=== PATIENT | female | born 1985 | race Caucasian/White ===

== ENCOUNTER 2019-11-29 10:10 | Day surgery (SDC) | payer BC ==
[~2019-11-29] VITALS: Ht 167.6 cm; Wt 62.8 kg
[~2019-11-29 10:10] MED LIST: IBUP-1222 PO; None at this Time; OXYC-302 PO; PREN1TAB27 PO
[2019-11-29 10:49] VITALS: BP 106/68
[2019-11-29] MEDS ORDERED: LACTATED RINGERS 1,000 ML IV SCH (10:54)
[2019-11-29 10:59] LABS: HCG UR SG 1.005 (1.003-1.030)
[2019-11-29] MEDS ORDERED: CHLORHEXIDINE 15 ML UDC MM ONE (11:00)
[2019-11-29] MEDS ORDERED: DIAZEPAM 5 MG TABLET PO ONE (11:00)
[2019-11-29] MEDS ORDERED: ONDANSETRON ODT 8 MG PO ONE (11:00)
[2019-11-29] MEDS ORDERED: ACETAMINOPHEN 500 MG TABLET PO ONE (11:00)
[2019-11-29] MEDS ORDERED: BUPIVACAINE/PF-EPI 0.25% 1:200K ONE (11:14)
[2019-11-29] MEDS ORDERED: MIDAZOLAM 1 MG/ML, 2ML ONE (11:23)
[2019-11-29] MEDS ORDERED: PROPOFOL 50 ML ONE (11:23)
[2019-11-29] MEDS ORDERED: FENTANYL PF 250 MCG/5ML ONE (11:24)
[2019-11-29] MEDS ORDERED: KETOROLAC 30 MG/1 ML ONE ×2 (11:31→12:27)
[2019-11-29] MEDS ORDERED: ONDANSETRON 2MG/ML, 2ML ONE (11:31)
[2019-11-29] MEDS ORDERED: DEXAMETHASONE 4 MG/ML, 1ML ONE (11:31)
[2019-11-29 11:33] LABS: BASOPHILS # (AUTO) 0.04 x10^3/uL (0-0.1); BASOPHILS % (AUTO) 1 % (0-1); EOSINOPHILS # (AUTO) 0.02 x10^3/uL (0-0.4); EOSINOPHILS % (AUTO) 0 % (1-7); LYMPHOCYTES # (AUTO) 1.83 x10^3/uL (1-3.4); LYMPHOCYTES % (AUTO) 36 % (22-44); MD NO; MEAN CORPUSCULAR HEMOGLOBIN 31.9 pg (27.0-34.8); MEAN CORPUSCULAR HGB CONC 33.5 g/dL (32.4-35.8); MEAN CORPUSCULAR VOLUME 95.3 fL (80-100); MEAN PLATELET VOLUME 7.4 fL (7.4-10.4); MONOCYTES # (AUTO) 0.52 x10^3/uL (0.2-0.8); MONOCYTES % (AUTO) 10 % (2-9); NEUTROPHILS # (AUTO) 2.74 x10^3/uL (1.8-6.8); NEUTROPHILS % (AUTO) 53 % (42-75); PLATELET COUNT 304 x10^3/uL (130-400); RED BLOOD COUNT 4.47 x10^6/uL (3.82-5.3); RED CELL DISTRIBUTION WIDTH 12.8 % (9.6-15.2)
[2019-11-29] MEDS ORDERED: PROMETHAZINE 25 MG/ML, 1ML IVPush PRN ×2 (12:00→13:00)
[2019-11-29] MEDS ORDERED: MEPERIDINE/PF 25MG/0.5ML IVPush PRN ×2 (12:00→13:00)
[2019-11-29] MEDS ORDERED: MIDAZOLAM 1 MG/ML, 2ML IV PRN (12:00)
[2019-11-29] MEDS ORDERED: OXYcodone 5 MG/5 ML ORAL.SOL UDC PO PRN ×2 (12:00→13:00)
[2019-11-29] MEDS ORDERED: DIPHENHYDRAMINE 50 MG/ML, 1ML IVPush PRN (12:00)
[2019-11-29] MEDS ORDERED: DIAZEPAM 5 MG/ML, 2ML IVPush PRN (12:00)
[2019-11-29] MEDS ORDERED: HYDROmorphone 1 MG/ML, 1ML INJ IVPush PRN ×2 (12:00→13:00)
[2019-11-29] MEDS ORDERED: ONDANSETRON 2MG/ML, 2ML IVPush PRN ×2 (12:00→13:00)
[2019-11-29] MEDS ORDERED: EPHEDRINE 50 MG/ML, 1ML IM PRN (12:00)
[2019-11-29] MEDS ORDERED: OXYcodone 5 MG/5 ML ORAL.SOL UDC ONE (12:28)
[2019-11-29] MEDS ORDERED: FENTANYL PF 100 MCG/2ML ONE (12:28)
[2019-11-29] MEDS: FENTANYL PF 100 MCG/2ML IV PRN ×2 (12:36→12:59)
[2019-11-29] MEDS ORDERED: KETOROLAC 30 MG/1 ML IVPush PRN (13:00)
[2019-11-29] MEDS ORDERED: FENTANYL PF 100 MCG/2ML IV PRN (13:00)
[2019-11-29] MEDS ORDERED: MEPERIDINE/PF 25MG/ML,1ML ONE (13:21)
== END 2019-11-29 16:05 | disposition home or self-care (01) ==
LOC: OUT 10:10
PROVIDERS: ATTEND Obstetrics & Gynecology Gynecology
DX: N93.8 Other specified abnormal uterine and vaginal bleeding (principal); Z11.59 Encounter for screening for other viral diseases; N94.6 Dysmenorrhea, unspecified; N84.0 Polyp of corpus uteri; N71.9 Inflammatory disease of uterus, unspecified; Z90.49 Acquired absence of other specified parts of digestive tract; Z98.890 Other specified postprocedural states; Z79.899 Other long term (current) drug therapy
CPT/HCPCS: 36415; 58558; 81025; 85025; 88305; J1100; J1885; J2175; J2250; J2405; J2704; J3010; J7120; Q0162; U0001

== ENCOUNTER 2020-08-28 08:08 | Day surgery (SDC) | payer BC ==
[2020-08-27 13:04] LABS: ALANINE AMINOTRANSFERASE 31 U/L (12-78); ALBUMIN 4.1 g/dL (3.4-5.0); ANION GAP 6 mmol/L (5-15); CALCIUM 8.4 mg/dL (8.5-10.1); CHLORIDE 109 mmol/L (98-107); CREATININE 1.02 mg/dL (0.55-1.02)
[2020-08-27 13:05] LABS: BASOPHILS % (AUTO) 1 % (0-1); EOSINOPHILS % (AUTO) 1 % (1-7); LYMPHOCYTES % (AUTO) 36 % (22-44); MEAN CORPUSCULAR HEMOGLOBIN 31.6 pg (27.0-34.8); MEAN CORPUSCULAR HGB CONC 33.5 g/dL (32.4-35.8); MEAN PLATELET VOLUME 7.6 fL (7.4-10.4); MONOCYTES % (AUTO) 9 % (2-9); NEUTROPHILS % (AUTO) 52 % (42-75); PLATELET COUNT 318 x10^3/uL (130-400); RED BLOOD COUNT 4.23 x10^6/uL (3.82-5.3); RED CELL DISTRIBUTION WIDTH 12.9 % (9.6-15.2)
[2020-08-27 13:09] LABS: ALKALINE PHOSPHATASE 33 U/L (45-117); BILIRUBIN,TOTAL 0.6 mg/dL (0.2-1.0)
[2020-08-27 13:10] LABS: MD NO
[2020-08-27 13:28] LABS: MICROSCOPIC AUTO
[~2020-08-28] VITALS: Ht 167.6 cm; Wt 61.3 kg
[~2020-08-28 08:08] MED LIST changes: +ACETAMINOPHEN 325 MG TABLET PO PRN; +EPHEDRINE 50 MG/ML, 1ML IVPush PRN; +FISH1CAP PO; +LABETALOL 5MG/ML, 20ML IV PRN; +LORazepam 2 MG/ML, 1ML IVPush PRN; +MAGN500C9 PO; +MEPERIDINE/PF 25MG/0.5ML IVPush PRN; +METHOCARBAMOL 1,000 MG in DEXTROSE 5% 100 ML IV PRN; +MULT-449 PO; +ONDANSETRON 2MG/ML, 2ML IVPush PRN; -OXYC-302 PO; +OXYC1TAB14 PO; +OXYcodone 5 MG/5 ML ORAL.SOL UDC PO PRN; +PROMETHAZINE 25 MG/ML, 1ML IVPush PRN; +hydrALAzine 20 MG/ML, 1ML IV PRN
[2020-08-28 08:46] VITALS: BP 113/76
[2020-08-28] MEDS ORDERED: CHLORHEXIDINE 15 ML UDC ONE (08:49)
[2020-08-28] MEDS ORDERED: LACTATED RINGERS 1,000 ML IV SCH (09:00)
[2020-08-28] MEDS ORDERED: CHLORHEXIDINE 15 ML UDC MM ONE (09:00)
[2020-08-28] MEDS ORDERED: MANNITOL PMX 20% 500 ML ONE (09:19)
[2020-08-28] MEDS ORDERED: BUPIVACAINE/PF 0.25% ONE (09:19)
[2020-08-28] MEDS ORDERED: SCOPOLAMINE 1MG PATCH TD SCH (09:30)
[2020-08-28] MEDS ORDERED: ACETAMINOPHEN 500 MG TABLET PO ONE (09:30)
[2020-08-28] MEDS ORDERED: SCOPOLAMINE 1MG PATCH TD ONE (09:35)
[2020-08-28] MEDS ORDERED: ACETAMINOPHEN 500 MG TABLET ONE (09:35)
[2020-08-28] MEDS ORDERED: KETOROLAC 30 MG/1 ML ONE ×2 (09:42→17:46)
[2020-08-28] MEDS ORDERED: METOCLOPRAMIDE 5 MG/ML, 2ML ONE (09:42)
[2020-08-28] MEDS ORDERED: FENTANYL PF 250 MCG/5ML ONE ×2 (10:01→11:22)
[2020-08-28] MEDS ORDERED: MIDAZOLAM 1 MG/ML, 2ML ONE (10:01)
[2020-08-28] MEDS ORDERED: ONDANSETRON 2MG/ML, 2ML ONE (10:02)
[2020-08-28] MEDS ORDERED: PROPOFOL 10 MG/ML, 20ML ONE (10:02)
[2020-08-28] MEDS ORDERED: GLYCOPYRROLATE 0.2MG/1ML, 5ML ONE (10:02)
[2020-08-28] MEDS ORDERED: NEOSTIGMINE 1 MG/ML, 10ML ONE (10:02)
[2020-08-28] MEDS ORDERED: CEFAZOLIN 1,000 MG ONE (10:02)
[2020-08-28] MEDS ORDERED: SUCCINYLCHOLINE 20 MG/ML, 10ML ONE (10:02)
[2020-08-28] MEDS ORDERED: DEXAMETHASONE 4 MG/ML, 1ML ONE (10:02)
[2020-08-28] MEDS ORDERED: ROCURONIUM 10MG/ML,5ML ONE (10:02)
[2020-08-28] MEDS ORDERED: PROPOFOL 50 ML ONE (10:03)
[2020-08-28] MEDS ORDERED: FENTANYL PF 100 MCG/2ML ONE ×2 (11:54→12:27)
[2020-08-28] MEDS ORDERED: OXYcodone 5 MG/5 ML ORAL.SOL UDC ONE (11:54)
[2020-08-28] MEDS: FENTANYL PF 100 MCG/2ML IV PRN ×3 (11:56→12:28)
[2020-08-28] MEDS ORDERED: HYDROmorphone 1 MG/ML, 1ML INJ ONE (12:02)
[2020-08-28] MEDS: HYDROmorphone 1 MG/ML, 1ML INJ IVPush PRN ×2 (12:07→12:18)
[2020-08-28] MEDS ORDERED: KETOROLAC 30 MG/1 ML IVPush PRN (18:00)
== END 2020-08-28 20:30 | disposition home or self-care (01) ==
LOC: OUT 08:08
PROVIDERS: ATTEND Obstetrics & Gynecology Gynecology
DX: N93.9 Abnormal uterine and vaginal bleeding, unspecified (principal); N94.6 Dysmenorrhea, unspecified; N80.0 Endometriosis of uterus; N70.11 Chronic salpingitis; N83.8 Other noninflammatory disorders of ovary, fallopian tube and broad ligament; Z20.822 Contact with and (suspected) exposure to COVID-19; Z79.899 Other long term (current) drug therapy; Z90.49 Acquired absence of other specified parts of digestive tract; Z98.890 Other specified postprocedural states
CPT/HCPCS: 36415; 58571; 80053; 81001; 84702; 85025; 86850; 86900; 88307; J0330; J0690; J1100; J1170; J1885; J2250; J2405; J2704; J2710; J2765; J3010; S2900; U0003

== ENCOUNTER 2020-10-21 20:48 | Inpatient (IN) | payer BC ==
[~2020-10-21] VITALS: Ht 167.6 cm; Wt 70.6 kg
[~2020-10-21 20:48] MED LIST changes: -ACETAMINOPHEN 325 MG TABLET PO PRN; -EPHEDRINE 50 MG/ML, 1ML IVPush PRN; -LABETALOL 5MG/ML, 20ML IV PRN; -LORazepam 2 MG/ML, 1ML IVPush PRN; -MEPERIDINE/PF 25MG/0.5ML IVPush PRN; -METHOCARBAMOL 1,000 MG in DEXTROSE 5% 100 ML IV PRN; -ONDANSETRON 2MG/ML, 2ML IVPush PRN; -OXYcodone 5 MG/5 ML ORAL.SOL UDC PO PRN; -PROMETHAZINE 25 MG/ML, 1ML IVPush PRN; -hydrALAzine 20 MG/ML, 1ML IV PRN
[2020-10-21] MEDS ORDERED: ONDANSETRON 2MG/ML, 2ML IVPush ONE (21:30)
[2020-10-21] MEDS ORDERED: SODIUM CHLORIDE 0.9% 1,000ML IVBOLUS ONE ×2 (21:30→23:30)
[2020-10-21] MEDS ORDERED: MORPHINE SULFATE 4 MG/ML, 1ML IVPush PRN (21:30)
[2020-10-21] MEDS ORDERED: PIPERACILLIN/TAZO 3.375 GM in DEXTROSE 5% 50 ML IVPB ONE (21:30)
[2020-10-21] MEDS ORDERED: SODIUM CHLORIDE FLUSH 10ML SYR IVF ONE (21:30)
[2020-10-21] MEDS ORDERED: PIPERACILLIN/TAZO/PMX 3.375GM 50 ML ONE (21:38)
[2020-10-21] MEDS ORDERED: MORPHINE SULFATE 4 MG/ML, 1ML ONE (21:39)
[2020-10-21] MEDS ORDERED: ONDANSETRON 2MG/ML, 2ML ONE (21:39)
[2020-10-21 21:43] LABS: BASOPHILS % (AUTO) 1 % (0-1); EOSINOPHILS % (AUTO) 0 % (1-7); LYMPHOCYTES % (AUTO) 6 % (22-44); MEAN CORPUSCULAR HEMOGLOBIN 31.2 pg (27.0-34.8); MEAN CORPUSCULAR HGB CONC 33.2 g/dL (32.4-35.8); MEAN PLATELET VOLUME 7.6 fL (7.4-10.4); MONOCYTES % (AUTO) 7 % (2-9); NEUTROPHILS % (AUTO) 87 % (42-75); PLATELET COUNT 224 x10^3/uL (130-400); RED BLOOD COUNT 3.74 x10^6/uL (3.82-5.3); RED CELL DISTRIBUTION WIDTH 13.1 % (9.6-15.2)
[2020-10-21 21:44] LABS: MD NO
--- NOTE | 2020-10-21 21:45 | NUR ---
IV STARTED, LABS DRAWN, 1 SET BC DRAWN BY RN, 2ND SET DRAWN BY LAB.
[2020-10-21] MEDS ORDERED: HYDROmorphone 1 MG/ML, 1ML INJ ONE ×2 (21:46→23:41)
[2020-10-21 21:57] LABS: ALBUMIN 3.4 g/dL (3.4-5.0); ANION GAP 4 mmol/L (5-15); CALCIUM 8.3 mg/dL (8.5-10.1); CHLORIDE 105 mmol/L (98-107)
[2020-10-21 22:00] LABS: ALANINE AMINOTRANSFERASE 26 U/L (12-78); ALKALINE PHOSPHATASE 36 U/L (45-117); BILIRUBIN,TOTAL 0.2 mg/dL (0.2-1.0); CREATININE 1.19 mg/dL (0.55-1.02); TOTAL PROTEIN 7.2 g/dL (6.4-8.2)
[2020-10-21] MEDS ORDERED: HYDROmorphone 1 MG/ML, 1ML INJ IV ONE ×2 (22:00)
[2020-10-21] MEDS ORDERED: OXYC1TAB14 PO (22:29)
[2020-10-21] MEDS ORDERED: CEPH-376 PO (22:29)
[2020-10-21] MEDS ORDERED: METR-90 PO (22:29)
[2020-10-21] MEDS ORDERED: ONDA4TAB7 PO (22:29)
[2020-10-21 22:30] LABS: MICROSCOPIC AUTO
--- NOTE | 2020-10-21 22:30 | NUR ---
PT TO CT WITH TECH AT THIS TIME.
[2020-10-21] MEDS ORDERED: OMNIPAQUE 350 MG/ML, 100ML BOTTLE ONE (22:45)
[2020-10-21] MEDS ORDERED: morphine SULFATE 10 MG/ML, 1ML IVPush PRN (23:30)
[2020-10-21] MEDS ORDERED: ACETAMINOPHEN 325 MG TABLET PO PRN (23:30)
[2020-10-21] MEDS ORDERED: IBUPROFEN 600 MG TABLET PO PRN (23:30)
[2020-10-22 00:35] VITALS: BP 93/60
[2020-10-22] MEDS: SODIUM CHLORIDE 0.9% 1,000 ML IV SCH ×3 (00:40→19:49)
[2020-10-22] MEDS: PROMETHAZINE 25 MG/ML, 1ML IM PRN ×2 (01:08→05:46)
[2020-10-22] MEDS: ONDANSETRON 2MG/ML, 2ML IVPush PRN ×4 (04:17→22:30)
[2020-10-22] MEDS: OXYcodone IR 5MG TABLET PO PRN ×3 (05:46→15:27)
[2020-10-22] MEDS: PIPERACILLIN/TAZO 3.375 GM in DEXTROSE 5% 50 ML IVPB SCH ×3 (05:46→22:19)
[2020-10-22 05:57] LABS: BASOPHILS % (AUTO) 0 % (0-1); EOSINOPHILS % (AUTO) 0 % (1-7); LYMPHOCYTES % (AUTO) 12 % (22-44); MEAN CORPUSCULAR HEMOGLOBIN 31.4 pg (27.0-34.8); MEAN CORPUSCULAR HGB CONC 33.5 g/dL (32.4-35.8); MEAN PLATELET VOLUME 7.6 fL (7.4-10.4); MONOCYTES % (AUTO) 7 % (2-9); NEUTROPHILS % (AUTO) 82 % (42-75); PLATELET COUNT 180 x10^3/uL (130-400); RED BLOOD COUNT 3.38 x10^6/uL (3.82-5.3); RED CELL DISTRIBUTION WIDTH 12.9 % (9.6-15.2)
[2020-10-22 05:59] LABS: MD NO
[2020-10-22 06:23] LABS: CHLORIDE 108 mmol/L (98-107)
[2020-10-22 06:30] LABS: ALANINE AMINOTRANSFERASE 23 U/L (12-78); ALBUMIN 2.8 g/dL (3.4-5.0); ALKALINE PHOSPHATASE 31 U/L (45-117); ANION GAP 5 mmol/L (5-15); BILIRUBIN,TOTAL 0.1 mg/dL (0.2-1.0); CALCIUM 7.5 mg/dL (8.5-10.1); CREATININE 1.04 mg/dL (0.55-1.02); TOTAL PROTEIN 6.2 g/dL (6.4-8.2)
[2020-10-22 07:02] VITALS: BP 108/63
[2020-10-22] MEDS: FAMOTIDINE 20 MG TABLET PO SCH ×2 (07:41→19:49)
[2020-10-22 12:26] VITALS: BP 90/55
[2020-10-22] MEDS: HYDROcodone/APAP 5/325 TABLET PO PRN ×2 (16:43→21:20)
[2020-10-22 18:47] VITALS: BP 88/50
[2020-10-22 19:16] VITALS: BP 104/58
[2020-10-23 00:20] VITALS: BP 99/63
[2020-10-23] MEDS: HYDROcodone/APAP 5/325 TABLET PO PRN ×5 (02:38→21:39)
[2020-10-23] MEDS: PROMETHAZINE 25 MG/ML, 1ML IM PRN (03:03)
[2020-10-23] MEDS: SODIUM CHLORIDE 0.9% 1,000 ML IV SCH ×2 (05:55→16:42)
[2020-10-23] MEDS: PIPERACILLIN/TAZO 3.375 GM in DEXTROSE 5% 50 ML IVPB SCH ×3 (05:56→21:39)
[2020-10-23 06:18] VITALS: BP 115/66
[2020-10-23] MEDS: ONDANSETRON 2MG/ML, 2ML IVPush PRN ×4 (06:19→19:10)
[2020-10-23] MEDS: FAMOTIDINE 20 MG TABLET PO SCH ×2 (07:32→21:39)
[2020-10-23 13:00] VITALS: BP 99/63
[2020-10-23] MEDS ORDERED: POLYETHYLENE GLYCOL 17 GM PACKET NG ONE (13:30)
[2020-10-23 19:51] VITALS: BP 94/57
[2020-10-23] MEDS: DOCUSATE 100 MG CAPSULE PO SCH (21:39)
[2020-10-24 01:37] VITALS: BP 108/68
[2020-10-24] MEDS: SODIUM CHLORIDE 0.9% 1,000 ML IV SCH ×2 (01:45→13:24)
[2020-10-24] MEDS: ONDANSETRON 2MG/ML, 2ML IVPush PRN ×3 (01:45→20:13)
[2020-10-24] MEDS: HYDROcodone/APAP 5/325 TABLET PO PRN ×5 (01:45→20:13)
[2020-10-24 05:31] LABS: BASOPHILS % (AUTO) 0 % (0-1); EOSINOPHILS % (AUTO) 0 % (1-7); LYMPHOCYTES % (AUTO) 18 % (22-44); MEAN CORPUSCULAR HEMOGLOBIN 31.3 pg (27.0-34.8); MEAN CORPUSCULAR HGB CONC 33.5 g/dL (32.4-35.8); MEAN PLATELET VOLUME 7.3 fL (7.4-10.4); MONOCYTES % (AUTO) 10 % (2-9); NEUTROPHILS % (AUTO) 72 % (42-75); PLATELET COUNT 173 x10^3/uL (130-400); RED BLOOD COUNT 3.19 x10^6/uL (3.82-5.3); RED CELL DISTRIBUTION WIDTH 12.9 % (9.6-15.2)
[2020-10-24 05:36] LABS: MD NO
[2020-10-24 05:41] LABS: ANION GAP 3 mmol/L (5-15); CALCIUM 7.4 mg/dL (8.5-10.1); CHLORIDE 105 mmol/L (98-107)
[2020-10-24 05:43] LABS: CREATININE 0.84 mg/dL (0.55-1.02)
[2020-10-24] MEDS: PIPERACILLIN/TAZO 3.375 GM in DEXTROSE 5% 50 ML IVPB SCH ×3 (05:46→21:43)
[2020-10-24 06:49] VITALS: BP 105/63
[2020-10-24] MEDS ORDERED: POLYETHYLENE GLYCOL 17 GM PACKET PO PRN (07:00)
[2020-10-24] MEDS: DOCUSATE 100 MG CAPSULE PO SCH ×2 (08:03→20:13)
[2020-10-24] MEDS: FAMOTIDINE 20 MG TABLET PO SCH ×2 (08:03→20:13)
[2020-10-24] MEDS ORDERED: BISACODYL 10 MG SUPP PR ONE (11:00)
[2020-10-24 13:00] VITALS: BP 100/63
[2020-10-24 19:56] VITALS: BP 88/56
[2020-10-25] MEDS: HYDROcodone/APAP 5/325 TABLET PO PRN (00:41)
[2020-10-25 01:18] VITALS: BP 97/60
[2020-10-25 05:40] LABS: BASOPHILS % (AUTO) 0 % (0-1); EOSINOPHILS % (AUTO) 0 % (1-7); LYMPHOCYTES % (AUTO) 21 % (22-44); MD NO; MEAN CORPUSCULAR HEMOGLOBIN 30.8 pg (27.0-34.8); MEAN CORPUSCULAR HGB CONC 33.2 g/dL (32.4-35.8); MEAN PLATELET VOLUME 7.4 fL (7.4-10.4); MONOCYTES % (AUTO) 13 % (2-9); NEUTROPHILS % (AUTO) 66 % (42-75); PLATELET COUNT 166 x10^3/uL (130-400); RED BLOOD COUNT 3.32 x10^6/uL (3.82-5.3); RED CELL DISTRIBUTION WIDTH 12.8 % (9.6-15.2)
[2020-10-25 05:49] LABS: INTERNATIONAL NORMALIZED RATIO 1.1 (0.93-1.1); PROTHROMBIN TIME 11.7 Seconds (9.6-11.5)
[2020-10-25 05:54] LABS: CHLORIDE 104 mmol/L (98-107)
[2020-10-25] MEDS: PIPERACILLIN/TAZO 3.375 GM in DEXTROSE 5% 50 ML IVPB SCH ×2 (05:59→14:27)
[2020-10-25 06:02] LABS: ALANINE AMINOTRANSFERASE 29 U/L (12-78); ALBUMIN 2.2 g/dL (3.4-5.0); ALKALINE PHOSPHATASE 31 U/L (45-117); ANION GAP 4 mmol/L (5-15); BILIRUBIN,TOTAL 0.2 mg/dL (0.2-1.0); CALCIUM 7.5 mg/dL (8.5-10.1); CREATININE 0.61 mg/dL (0.55-1.02); TOTAL PROTEIN 5.5 g/dL (6.4-8.2)
[2020-10-25 08:35] VITALS: BP 104/66
[2020-10-25] MEDS: DOCUSATE 100 MG CAPSULE PO SCH (08:36)
[2020-10-25] MEDS: FAMOTIDINE 20 MG TABLET PO SCH ×2 (08:36→20:09)
[2020-10-25] MEDS: ONDANSETRON 2MG/ML, 2ML IVPush PRN ×2 (12:28→19:09)
[2020-10-25 12:40] VITALS: BP 98/51
[2020-10-25] MEDS ORDERED: PROCHLORPERAZINE 10MG TABLET PO PRN (14:30)
[2020-10-25] MEDS: KETOROLAC 30 MG/1 ML IVPush PRN ×2 (14:44→20:45)
[2020-10-25] MEDS ORDERED: SENNA/DOCUSATE TABLET PO ONE (16:30)
[2020-10-25] MEDS ORDERED: POLYETHYLENE GLYCOL 17 GM PACKET PO PRN (16:30)
[2020-10-25] MEDS ORDERED: IBUPROFEN 600 MG TABLET PO PRN (17:30)
[2020-10-25 20:03] VITALS: BP 111/72
[2020-10-25] MEDS: LORazepam 1MG TABLET PO PRN (20:47)
[2020-10-25] MEDS: METRONIDAZOLE PMX 500MG/100ML 100 ML IV SCH (22:07)
[2020-10-25] MEDS: CIPROFLOXACIN/PMX 400MG/200ML 200 ML IV SCH (23:34)
[2020-10-26 01:38] VITALS: BP 110/74
[2020-10-26] MEDS: ONDANSETRON 2MG/ML, 2ML IVPush PRN ×3 (02:50→20:58)
[2020-10-26] MEDS: KETOROLAC 30 MG/1 ML IVPush PRN ×3 (02:51→20:58)
[2020-10-26] MEDS: METRONIDAZOLE PMX 500MG/100ML 100 ML IV SCH ×4 (05:48→22:07)
[2020-10-26 05:55] LABS: INTERNATIONAL NORMALIZED RATIO 1.1 (0.93-1.1); PROTHROMBIN TIME 11.8 Seconds (9.6-11.5)
[2020-10-26 05:55] LABS: ALANINE AMINOTRANSFERASE 36 U/L (12-78); ALBUMIN 2.2 g/dL (3.4-5.0); ANION GAP 5 mmol/L (5-15); CALCIUM 7.8 mg/dL (8.5-10.1); CHLORIDE 103 mmol/L (98-107); CREATININE 0.63 mg/dL (0.55-1.02)
[2020-10-26 05:57] LABS: ALKALINE PHOSPHATASE 32 U/L (45-117); BILIRUBIN,TOTAL 0.2 mg/dL (0.2-1.0); TOTAL PROTEIN 5.7 g/dL (6.4-8.2)
[2020-10-26] MEDS: LORazepam 1MG TABLET PO PRN ×2 (06:05→20:58)
[2020-10-26 06:07] LABS: MEAN CORPUSCULAR HEMOGLOBIN 30.8 pg (27.0-34.8); MEAN CORPUSCULAR HGB CONC 33.9 g/dL (32.4-35.8); MEAN PLATELET VOLUME 7.6 fL (7.4-10.4); PLATELET COUNT 165 x10^3/uL (130-400); RED BLOOD COUNT 3.47 x10^6/uL (3.82-5.3); RED CELL DISTRIBUTION WIDTH 12.9 % (9.6-15.2)
[2020-10-26 06:12] LABS: MD YES
[2020-10-26 06:30] LABS: BAND#(MANUAL) 0.07 x10^3/uL; BANDS%(MANUAL) 4 % (0-7); LYMPH#(MANUAL) 0.32 x10^3/uL (1-3.4); LYMPHS% (MANUAL) 19 % (22-44); METAMYELOCYTES# (MANUAL) 0.02 x10^3/uL (0-0); METAMYELOCYTES% (MANUAL) 1 % (0-1); MONOS#(MANUAL) 0.27 x10^3/uL (0.3-2.7); MONOS% (MANUAL) 16 % (2-9); SEG#(MANUAL) 1.02 x10^3/uL (1.8-6.8); SEGS% (MANUAL) 60 % (42-75)
[2020-10-26 06:32] LABS: <PLATELET ESTIMATE> ADEQUATE; <PLT MORPHOLOGY> NORMAL PLT MORPH; <RBC MORPHOLOGY> NORMAL
[2020-10-26 07:18] VITALS: BP 97/61
[2020-10-26] MEDS: FAMOTIDINE 20 MG TABLET PO SCH ×2 (09:07→20:57)
[2020-10-26] MEDS: SENNA/DOCUSATE TABLET PO SCH ×2 (09:07→20:58)
[2020-10-26] MEDS: CIPROFLOXACIN/PMX 400MG/200ML 200 ML IV SCH ×2 (11:16→23:50)
[2020-10-26 13:07] VITALS: BP 104/67
[2020-10-26 19:51] VITALS: BP 105/73
[2020-10-26] MEDS ORDERED: CALCIUM CARBONATE 500 MG TAB.CHEW PO PRN (23:30)
[2020-10-27 00:44] VITALS: BP 94/68
[2020-10-27] MEDS: METRONIDAZOLE PMX 500MG/100ML 100 ML IV SCH ×2 (05:52→14:00)
[2020-10-27] MEDS: LORazepam 1MG TABLET PO PRN (05:52)
[2020-10-27] MEDS: KETOROLAC 30 MG/1 ML IVPush PRN (05:52)
[2020-10-27 06:02] LABS: BASOPHILS % (AUTO) 0 % (0-1); EOSINOPHILS % (AUTO) 0 % (1-7); LYMPHOCYTES % (AUTO) 32 % (22-44); MEAN CORPUSCULAR HEMOGLOBIN 30.8 pg (27.0-34.8); MEAN CORPUSCULAR HGB CONC 34.1 g/dL (32.4-35.8); MEAN PLATELET VOLUME 7.6 fL (7.4-10.4); MONOCYTES % (AUTO) 20 % (2-9); NEUTROPHILS % (AUTO) 47 % (42-75); PLATELET COUNT 195 x10^3/uL (130-400); RED BLOOD COUNT 3.49 x10^6/uL (3.82-5.3); RED CELL DISTRIBUTION WIDTH 12.7 % (9.6-15.2)
[2020-10-27 06:13] LABS: ALBUMIN 2.2 g/dL (3.4-5.0); ANION GAP 6 mmol/L (5-15); CALCIUM 7.8 mg/dL (8.5-10.1); CHLORIDE 104 mmol/L (98-107)
[2020-10-27 06:17] LABS: MD NO
[2020-10-27 06:18] LABS: ALANINE AMINOTRANSFERASE 70 U/L (12-78); ALKALINE PHOSPHATASE 33 U/L (45-117); BILIRUBIN,TOTAL 0.2 mg/dL (0.2-1.0); CREATININE 0.71 mg/dL (0.55-1.02); TOTAL PROTEIN 5.9 g/dL (6.4-8.2)
[2020-10-27] MEDS: SENNA/DOCUSATE TABLET PO SCH (08:30)
[2020-10-27] MEDS: FAMOTIDINE 20 MG TABLET PO SCH (08:30)
[2020-10-27 08:34] VITALS: BP 102/59
[2020-10-27] MEDS ORDERED: POTASSIUM CHLORIDE 20 MEQ TAB.ER.PRT PO ONE (09:00)
[2020-10-27] MEDS: CIPROFLOXACIN/PMX 400MG/200ML 200 ML IV SCH (10:51)
[2020-10-27] MEDS ORDERED: CIPR500T87 PO (13:17)
[2020-10-27] MEDS ORDERED: METR-90 PO (13:17)
[2020-10-27] MEDS ORDERED: SENN-204 PO (13:17)
== END 2020-10-27 15:25 | disposition home or self-care (01) | DRG 371 ==
LOC: ED 22:28 → OBSVTOIN 23:20 → EDIP 23:20 → 3N 10-22 00:21 → DCLOUNGE 10-27 15:19
PROVIDERS: ADMIT Family Medicine; ATTEND Family Medicine
DX: K65.9 Peritonitis, unspecified (principal); N17.0 Acute kidney failure with tubular necrosis; T81.32XA Disruption of internal operation (surgical) wound, not elsewhere classified, initial encounter; R18.8 Other ascites; R50.82 Postprocedural fever; D64.9 Anemia, unspecified; D70.9 Neutropenia, unspecified; E86.0 Dehydration; K59.00 Constipation, unspecified; K76.0 Fatty (change of) liver, not elsewhere classified; N93.9 Abnormal uterine and vaginal bleeding, unspecified; R79.1 Abnormal coagulation profile; Z80.42 Family history of malignant neoplasm of prostate; Z90.710 Acquired absence of both cervix and uterus; Y83.8 Other surgical procedures as the cause of abnormal reaction of the patient, or of later complication, without mention of misadventure at the time of the procedure; Y92.89 Other specified places as the place of occurrence of the external cause
CPT/HCPCS: 36415; 96365; 96366; 96375; 96376; 99285; Q0164; 71045; 74177; 80048; 80053; 80074; 81001; 83605; 85025; 85610; 85730; 87040; 87086; G0378; J0744; J1170; J1885; J2405; J2543; J2550; Q9967; J7030